=== PATIENT | male | born 1970 | race American Indian/Alaskan Native ===

== ENCOUNTER 2020-08-08 22:53 | Emergency (ER) | payer SELFPAY ==
[2020-08-09 02:48] LABS: Basophils % (Auto) 0.3 % (0.0-1.8); Eosinophils % (Auto) 0.1 % (0.0-4.3); Hematocrit 45.9 % (35.5-45.6); Hemoglobin 15.2 gm/dl (11.8-15.2); Lymphocytes # (Auto) 1.2 K/mm3 (1.2-5.4); Mean Corpuscular HGB Conc 33 % (32-34); Mean Corpuscular Volume 90 fl (84-94); Monocytes # (Auto) 0.5 K/mm3 (0.0-0.8); Monocytes % (Auto) 5.4 % (0.0-7.3); Platelet Count 133 K/mm3 (140-440); Red Cell Distribution Width 14.5 % (13.2-15.2)
[2020-08-09 02:52] LABS: BUN/Creatinine Ratio 15; Blood Urea Nitrogen 20 mg/dL (9-20); Calcium 9.3 mg/dL (8.4-10.2); Hemolysis Index 4
--- NOTE | 2020-08-09 07:58 | Emergency Department Report ---
ED General Adult HPI - General Chief complaint: Altered Mental Status Stated complaint: OVERDOSE Time Seen by Provider: 08/09/20 07:43 Source: EMS Mode of arrival: Wheelchair Limitations: No Limitations - History of Present Illness Initial comments: This is a 50-year-old male that prior to bed placement waited nearly 9 hours in the waiting room. His triage note states that he took "1 methadone for headache". Per the EMS "friends reported patient acting weird". The patient was sleeping on my encounter but easily arousable. He denied headache. He states that he jerked his back getting out of a car. He informs me that his godmother gave him a methadone for pain. After that he had a "allergic reaction". He states he started vomiting and EMS was notified. He had no intent of self-harm. Patient tells me he has a primary care physician in [facility]. He states he seen an orthopedic in the past who did an MRI on his back and did not re commend any surgical intervention. He does have occasional back problems. He is not complaining of back pain at this time. -: Gradual, minutes(s) Location: back (Lower back) Radiation: non-radiation Quality: aching Consistency: now resolved Improves with: none Worsens with: none Associated Symptoms: denies other symptoms - Related Data Home Medications Medication Instructions Recorded Confirmed Last Taken No Known Home Medications [No 12/27/12 12/27/12 Unknown Reported Home Medications] Allergies Allergy/AdvReac Type Severity Reaction Status Date / Time No Known Allergies Allergy Unverified 12/27/12 10:47 ED Review of Systems ROS: Stated complaint: OVERDOSE Other details as noted in HPI Constitutional: denies: chills, fever Eyes: denies: eye pain, vision change ENT: denies: ear pain, throat pain Respiratory: denies: cough, shortness of breath Cardiovascular: denies: chest pain, palpitations Endocrine: no symptoms reported Gastrointestinal: vomiting. denies: abdominal pain, nausea, diarrhea Genitourinary: denies: urgency, dysuria Musculoskeletal: back pain. denies: joint swelling, arthralgia Skin: denies: rash, lesions Neurological: denies: headache, weakness, paresthesias Psychiatric: denies: anxiety, depression Hematological/Lymphatic: denies: easy bleeding, easy bruising ED Past Medical Hx - Past Medical History Previous Medical History?: No - Surgical History Past Surgical History?: No - Social History Smoking Status: Never Smoker Substance Use Type: None - Medications Home Medications: Home Medications Medication Instructions Recorded Confirmed Last Taken Type No Known Home Medications [No 12/27/12 12/27/12 Unknown History Reported Home Medications] ED Physical Exam - General Limitations: No Limitations General appearance: alert, in no apparent distress - Head Head exam: Present: atraumatic, normocephalic - Eye Eye exam: Present: normal appearance. Absent: scleral icterus - ENT ENT exam: Present: mucous membranes moist - Neck Neck exam: Present: normal inspection - Respiratory Respiratory exam: Present: normal lung sounds bilaterally. Absent: respiratory distress - Cardiovascular Cardiovascular Exam: Present: regular rate, normal rhythm. Absent: systolic murmur, diastolic murmur, rubs, gallop - GI/Abdominal GI/Abdominal exam: Present: soft, normal bowel sounds. Absent: distended, tenderness, guarding, rebound - Rectal Rectal exam: Present: deferred - Extremities Exam Extremities exam: Present: normal inspection - Back Exam Back exam: Present: normal inspection, full ROM, other (Straight leg raise was negative bilaterally). Absent: CVA tenderness (R), CVA tenderness (L), muscle spasm, paraspinal tenderness, vertebral tenderness - Neurological Exam Neurological exam: Present: alert, oriented X3, CN II-XII intact. Absent: motor sensory deficit - Psychiatric Psychiatric exam: Present: normal affect, normal mood - Skin Skin exam: Present: warm, dry, intact, normal color. Absent: rash ED Course Vital Signs 08/08/20 23:27 Temperature 98 F Pulse Rate 83 Respiratory 20 Rate Blood Pressure 112/73 [Left] O2 Sat by Pulse 98 Oximetry ED Medical Decision Making - Lab Data Result diagrams: 08/09/20 01:48 08/09/20 01:48 Laboratory Results - last 24 hr 08/09/20 08/09/20 01:48 01:48 WBC 9.3 RBC 5.10 H Hgb 15.2 Hct 45.9 H MCV 90 MCH 30 MCHC 33 RDW 14.5 Plt Count 133 L Lymph % (Auto) 13.0 L Ector % (Auto) 5.4 Eos % (Auto) 0.1 Baso % (Auto) 0.3 Lymph # (Auto) 1.2 Ector # (Auto) 0.5 Eos # (Auto) 0.0 Baso # (Auto) 0.0 Seg Neutrophils % 81.2 H Seg Neutrophils # 7.6 Sodium 141 Potassium 4.6 Chloride 101.7 Carbon Dioxide 29 Anion Gap 15 BUN 20 Creatinine 1.3 Estimated GFR > 60 BUN/Creatinine Ratio 15 Glucose 168 H Calcium 9.3 Critical care attestation.: If time is entered above; I have spent that time in minutes in the direct care of this critically ill patient, excluding procedure time. ED Disposition Clinical Impression: Hyperglycemia Adverse effects of medication Qualifiers: Encounter type: initial encounter Qualified Code(s): T50.905A - Adverse effect of unspecified drugs, medicaments and biological substances, initial encounter Disposition: TO HOME OR SELFCARE Is pt being admited?: No Does the pt Need Aspirin: No Condition: Stable Instructions: Hyperglycemia, [id number] Additional Instructions: Avoid taking nonprescribed medication. Your sugar was somewhat elevated. This needs follow-up and possible treatment by your primary care physician. Return any acute change or problem. Referrals: PRIMARY CARE, [Primary Care Provider] - 2-3 Days Time of Disposition: 08:01
[2020-08-09 08:49] VITALS: BP 176/98
== END 2020-08-09 08:50 | disposition home or self-care (01) ==
LOC: ED 22:53
DX: R73.9 Hyperglycemia, unspecified (principal); T40.3X5A Adverse effect of methadone, initial encounter; Y92.89 Other specified places as the place of occurrence of the external cause
CPT/HCPCS: 36415; 80048; 85025